=== PATIENT | male | born 1980 | race Caucasian/White ===

== ENCOUNTER 2017-02-13 22:17 | Emergency (ER) | payer SELFPAY ==
[~2017-02-13] VITALS: Ht 180.3 cm; Wt 96.7 kg
[~2017-02-13 22:17] MED LIST: LIDOCAINE20 MG/1 M5 MM; NAPROSYN500 MG PO; NOHOMEMEDS; PEN-VEE K,VEET500 MG PO; SUBOXONE 2 M1 TABLET PO; SUBOXONE 8 M1 TABLET PO; VICODIN,LORT1 TABLET PO
[2017-02-13 23:06] LABS: HEMATOCRIT 47.7 % (38.0-50.0); MCH 28.1 PG (29.0-34.0); MCHC 32.9 G/DL (30.0-36.0); MCV 85.3 FL (86-99); MEAN PLAT.VOLUME 11.7 uM^3 (9.0-12.4); PLATELET COUNT 219 K/uL (156-360); RBC DIS.WIDTH-CV 14.6 % (11.8-14.6); RBC DIS.WIDTH-SD 45.5 % (39-53); RED BLOOD COUNT 5.59 M/uL (4.00-5.50); WHITE BLOOD COUNT 10.4 K/uL (4.1-10.2)
[2017-02-13 23:19] LABS: CHLORIDE 102 mEq/L (99-109); POTASSIUM 3.7 mEq/L (3.7-5.4); SODIUM 139 mEq/L (136-147)
[2017-02-13 23:20] LABS: GLUCOSE 87 mg/dL (70-99)
[2017-02-13 23:22] LABS: ANION GAP 11 MEQ/L (2-14)
[2017-02-13 23:24] LABS: GFR ESTIMATE (CALCULATED) > 59 mL/min/
[2017-02-13 23:25] LABS: UREA NITROGEN (BUN) 18 mg/dL (9-23)
[2017-02-13 23:27] LABS: TROP-I INTERPRETATION NEGATIVE; TROPONIN-I < 0.01 ng/mL (0.0-0.30)
[2017-02-14] MEDS ORDERED: VENTOLIN HFA18 GM IH (00:05)
[2017-02-14] MEDS ORDERED: MEDROL DOSEPAK4 MG PO (00:05)
[2017-02-14 00:38] VITALS: BP 145/84
== END 2017-02-14 00:40 | disposition home or self-care (01) ==
LOC: RME 22:17 → EME 22:17 → RME 02-14 00:40
DX: J45.909 Unspecified asthma, uncomplicated (principal); R07.89 Other chest pain; F17.200 Nicotine dependence, unspecified, uncomplicated
CPT/HCPCS: 71020; 80048; 84484; 85027; 93005; 94640; 99281; 99283; J7512